=== PATIENT | female | born 1945 | race Caucasian/White ===

== ENCOUNTER 2021-07-24 23:43 | Inpatient (IN) | payer MEDICAID ==
[~2021-07-24] VITALS: Ht 152.4 cm; Wt 63.5 kg
[~2021-07-24 23:43] MED LIST: AMLO5TAB88 PO; PROT20 MT
[2021-07-25] MEDS ORDERED: ONDANSETRON HCL 4MG/2ML INJ IV STA (00:12)
[2021-07-25] MEDS ORDERED: FAMOTIDINE 20MG/2ML VIAL IV STA (00:12)
[2021-07-25] MEDS ORDERED: MORPHINE SULFATE 4 MG/ML CPJ (NOT FOR IM USE) IV STA (00:12)
[2021-07-25] MEDS ORDERED: SODIUM CHLORIDE 0.9% 1,000 ML IV ONE ×3 (00:15→04:30)
[2021-07-25 00:55] LABS: BASOPHILS % 0.3 % (0.0-2.0); EOSINOPHILS % 0.4 % (0.0-5.0); HEMATOCRIT. 39.1 % (36.0-48.0); LYMPHOCYTES % 13.8 % (20.0-50.0); MEAN CORPUSCULAR HEMOGLOBIN 30.9 pg (28.0-32.0); MEAN CORPUSCULAR VOLUME 92.6 fL (81.0-99.0); MEAN PLATELET VOLUME 9.4 fl (7.4-10.4); MONOCYTES % 4.3 % (2.0-8.0); NEUTROPHILS % 81.2 % (40.0-76.0); PLATELET 229 x1000/uL (130-400); RED BLOOD CELL COUNT 4.22 mill/uL (4.2-5.4); RED CELL DISTRIBUTION WIDTH 13.9 % (11.6-14.6)
[2021-07-25 01:03] LABS: CHLORIDE 102 mEq/L (98-107)
[2021-07-25] MEDS ORDERED: MORPHINE SULFATE 2 MG/ML CPJ (NOT FOR IM USE) IV SCH (01:15)
[2021-07-25 03:30] LABS: CLARITY URINE CLEAR (CLEAR); COLOR URINE YELLOW (YELLOW); KETONES URINE NEGATIVE (NEGATIVE); LEUKOCYTE ESTERASE URINE NEGATIVE (NEGATIVE); NITRITE URINE NEGATIVE (NEGATIVE); OCCULT BLOOD URINE NEGATIVE (NEGATIVE); PROTEIN URINE TRACE (NEGATIVE); SPECIFIC GRAVITY URINE 1.038 (1.005-1.030); UROBILINOGEN URINE 0.2 E.U./dL (0.2-1.0)
[2021-07-25] MEDS ORDERED: IOHEXOL-300 100 ML BOTTLE ONE (03:41)
[2021-07-25] MEDS ORDERED: ACETAMINOPHEN 325MG TABLET PO PRN (04:15)
[2021-07-25] MEDS ORDERED: MORPHINE SULFATE 2 MG/ML CPJ (NOT FOR IM USE) IV PRN (04:15)
[2021-07-25] MEDS ORDERED: CLONIDINE 0.1MG TABLET PO SCH (04:30)
[2021-07-25] MEDS ORDERED: POTASSIUM CHLORIDE INJ 40 MEQ in DEXT 5% WATER 250 ML IV SCH (05:00)
[2021-07-25 05:40] VITALS: BP 175/93
[2021-07-25] MEDS: ONDANSETRON HCL 4MG/2ML INJ IV PRN ×2 (05:55→11:40)
[2021-07-25 08:00] VITALS: BP 145/79
[2021-07-25] MEDS ORDERED: PANTOPRAZOLE 40MG DR TABLET PO SCH (09:00)
[2021-07-25] MEDS: THIAMINE HCL 100MG TABLET PO SCH (09:57)
[2021-07-25] MEDS: AMLODIPINE 5MG TABLET PO SCH (09:58)
[2021-07-25] MEDS: SODIUM CHLORIDE 0.9% 1,000 ML IV SCH (09:59)
[2021-07-25 12:00] VITALS: BP 151/78
[2021-07-25] MEDS: PANTOPRAZOLE SODIUM 40 MG/VIAL IV SCH (13:50)
[2021-07-25] MEDS ORDERED: CLONIDINE 0.1MG TABLET PO PRN (15:15)
[2021-07-25 16:00] VITALS: BP 139/65
[2021-07-25 16:04] LABS: BASOPHILS % 0.1 % (0.0-2.0); HEMATOCRIT. 38.9 % (36.0-48.0); HEMOGLOBIN. 13.3 g/dL (12.0-16.0); LYMPHOCYTES % 11.5 % (20.0-50.0); MEAN CORPUSCULAR HEMOGLOBIN 31.8 pg (28.0-32.0); MEAN CORPUSCULAR VOLUME 92.7 fL (81.0-99.0); MEAN PLATELET VOLUME 9.8 fl (7.4-10.4); MONOCYTES % 6.5 % (2.0-8.0); NEUTROPHILS % 81.9 % (40.0-76.0); PLATELET 236 x1000/uL (130-400); RED BLOOD CELL COUNT 4.19 mill/uL (4.2-5.4); RED CELL DISTRIBUTION WIDTH 13.8 % (11.6-14.6)
[2021-07-25 16:10] LABS: CHLORIDE 102 mEq/L (98-107)
[2021-07-25 16:19] LABS: LDL CHOLESTEROL 113 mg/dL (5-100)
[2021-07-25 16:21] LABS: HDL CHOLESTEROL 50 mg/dL (40-59)
[2021-07-25 20:00] VITALS: BP 132/68
[2021-07-26] VITALS: BP 129/66
[2021-07-26 04:00] VITALS: BP 128/65
[2021-07-26 07:56] VITALS: BP 111/54
[2021-07-26 08:59] LABS: BASOPHILS % 0.3 % (0.0-2.0); EOSINOPHILS % 1.1 % (0.0-5.0); HEMATOCRIT. 38.5 % (36.0-48.0); HEMOGLOBIN. 12.9 g/dL (12.0-16.0); LYMPHOCYTES % 17.5 % (20.0-50.0); MEAN CORPUSCULAR HEMOGLOBIN 31.2 pg (28.0-32.0); MEAN CORPUSCULAR VOLUME 92.8 fL (81.0-99.0); MEAN PLATELET VOLUME 9.5 fl (7.4-10.4); MONOCYTES % 7.3 % (2.0-8.0); NEUTROPHILS % 73.8 % (40.0-76.0); PLATELET 216 x1000/uL (130-400); RED BLOOD CELL COUNT 4.15 mill/uL (4.2-5.4); RED CELL DISTRIBUTION WIDTH 13.8 % (11.6-14.6)
[2021-07-26] MEDS: PANTOPRAZOLE SODIUM 40 MG/VIAL IV SCH (09:05)
[2021-07-26] MEDS: THIAMINE HCL 100MG TABLET PO SCH (09:05)
[2021-07-26] MEDS: AMLODIPINE 5MG TABLET PO SCH (09:05)
[2021-07-26 09:19] LABS: CHLORIDE 103 mEq/L (98-107)
[2021-07-26 11:54] VITALS: BP 103/64
[2021-07-26] MEDS: SODIUM CHLORIDE 0.9% 1,000 ML IV SCH ×2 (12:17→16:49)
[2021-07-26 16:20] VITALS: BP 99/54
[2021-07-26] MEDS ORDERED: NALOXONE HCL 0.4MG/ML VIAL IV PRN (19:30)
[2021-07-26 20:00] VITALS: BP 103/58
[2021-07-27] VITALS: BP 103/53
[2021-07-27 04:00] VITALS: BP 102/52
[2021-07-27] MEDS: SODIUM CHLORIDE 0.9% 1,000 ML IV SCH (05:52)
[2021-07-27 08:00] VITALS: BP 108/50
[2021-07-27] MEDS: THIAMINE HCL 100MG TABLET PO SCH (08:16)
[2021-07-27] MEDS: PANTOPRAZOLE SODIUM 40 MG/VIAL IV SCH (08:16)
[2021-07-27] MEDS: AMLODIPINE 5MG TABLET PO SCH (08:19)
[2021-07-27 12:00] VITALS: BP 106/53
[2021-07-27 16:00] VITALS: BP 120/56
[2021-07-27 19:11] VITALS: BP 122/56
== END 2021-07-27 20:15 | disposition home or self-care (01) | DRG 282 ==
LOC: ER 23:43 → MICUSO 07-25 02:25 → 6WST 07-25 04:43
PROVIDERS: ADMIT Internal Medicine; ATTEND Internal Medicine
DX: K85.90 Acute pancreatitis without necrosis or infection, unspecified (principal); E87.2 Acidosis; K76.0 Fatty (change of) liver, not elsewhere classified; K57.90 Diverticulosis of intestine, part unspecified, without perforation or abscess without bleeding; E87.6 Hypokalemia; N81.10 Cystocele, unspecified; I10 Essential (primary) hypertension; I34.0 Nonrheumatic mitral (valve) insufficiency; K83.8 Other specified diseases of biliary tract; Z90.49 Acquired absence of other specified parts of digestive tract; Z82.49 Family history of ischemic heart disease and other diseases of the circulatory system; K29.70 Gastritis, unspecified, without bleeding
CPT/HCPCS: 36415; 71045; 74177; 76700; 80048; 80053; 80061; 80076; 81003; 82150; 83605; 85025; 93005; 99285; C9113; J2270; J2405; J3480; J3490; J7030; J7060; Q9967